=== PATIENT | female | born 1940 | race Hispanic/Latino ===

== ENCOUNTER → 2017-12-11 | Outpatient (CLI) | payer MEDICARE ==
[~2017-12-11] MED LIST: LIDOCAINE HCL MPF 1% 5ML VIAL ONE
[2017-12-11 08:53] LABS: INR 1.56 (0.85-1.15); PARTIAL THROMBOPLASTIN TIME 39.5 SEC (26.3-35.5); PROTHROMBIN TIME 16.2 SEC (9.6-11.6)
== END | disposition home or self-care (01) ==
LOC: RAH 08:04
PROVIDERS: ATTEND Internal Medicine
DX: R18.8 Other ascites (principal); I10 Essential (primary) hypertension; E11.9 Type 2 diabetes mellitus without complications; E03.9 Hypothyroidism, unspecified; K21.9 Gastro-esophageal reflux disease without esophagitis; Z98.890 Other specified postprocedural states; Z79.4 Long term (current) use of insulin; Z79.899 Other long term (current) drug therapy
CPT/HCPCS: 36415; 49083; 85610; 85730; A4215; J3490